=== PATIENT | female | born 1955 | race Caucasian/White ===

== ENCOUNTER 2021-12-01 14:39 | Emergency (ER) | payer MEDICARE, MEDICAID, SELFPAY ==
[2021-12-01] VITALS (7 sets, daily range): BP systolic 105–191; BP diastolic 73–118; PULSE 69–79; RESP 17–20; TEMP 36.7–36.8; O2SAT 95–98; BMI 30.4
--- NOTE | 2021-12-01 15:08 | PC.NURSE ---
blankets propped under R knee are for support and comfort
--- NOTE | 2021-12-01 15:10 | PC.NURSE ---
ELEAZAR RICKS at
--- NOTE | 2021-12-01 15:13 | XR_ITS ---
FINAL REPORT CLINICAL HISTORY: injury, fall today, pain FINDINGS: 2 views of the right hip and an AP pelvis were obtained. There is a fracture of the superior acetabulum. There is superior subluxation of the right femur. IMPRESSION: Superior acetabular fracture with superior subluxation of the femur. Reviewed, Interpreted and Dictated by Matt Tillman III, MD Transcribed by Monico Gonzales Authenticated and [facility]
--- NOTE | 2021-12-01 15:33 | CT_ITS ---
FINAL REPORT CLINICAL HISTORY: injury, fall today , pain FINDINGS: CT RIGHT HIP WITHOUT CONTRAST Technique: Axial images through the right hip were performed by computed tomography. Sagittal and coronal reconstruction images were performed. This study was performed with techniques to keep radiation doses as low as reasonably achievable (ALARA). Individualized dose reduction techniques using automated exposure control or adjustment of mA and/or kV according to the patient's size were employed. There is a comminuted fracture of the posterior-superior acetabulum. There are several bony fragments within the joint space. Largest fragment measures 28 mm and is displaced superiorly. There is significant posterior and superior subluxation of the right femur. A joint effusion is present. IMPRESSION: Comminuted acetabular fracture with posterior superior subluxation of the femur. Reviewed, Interpreted and Dictated by Matt Tillman III, MD Transcribed by Monico Gonzales Authenticated and [facility]
--- NOTE | 2021-12-01 15:33 | PC.NURSE ---
susannah notified of CT order of R hip per ER MD
--- NOTE | 2021-12-01 15:34 | HMH.EDGENADL ---
Discharge Plan Disposition Patient Disposition: Xfer Short-Term Hosp Condition: Fair Chief Complaint: Fall Referrals Follow up/Referrals: Michelle Banda [Primary Care Provider] - See instructions Clinical Impressions Clinical Impression: Acetabulum fracture, Fracture subluxation of hip joint Discharge ED Provider: Dayton Gutiérrez General Adult HPI General Chief complaint: Fall Stated complaint: Fall Time Seen by Provider: 12/01/21 15:08 Mode of Arrival: Family Vehicle Source of Information: Patient Limitations: No Limitations Description of Symptoms (Recalled from ER Triage Doc. by RN): pt to ed via pvt car c/o right hip pain. pt states she was at the bottom of a ladder holding for her son, the ladder became unstable and the ladder and her son fell on top of her. pt denies hitting her head and states -LOC. History of Present Illness HPI narrative: History obtained from patient and her son. Patient states that she was holding a ladder for her son who was climbing up on the ladder. The ladder fell. She was knocked to the ground landing on her left side and then the ladder landed on top of her with his weight on the ladder. She complains of pain in her right posterior hip. States that she was not able to move her hip or bear weight after the injury. Brought in by son by private vehicle. She has a small skin tear on her left forearm, otherwise denies any other injuries. Denies head or neck injury, chest injury, abdominal injury, back injury. No numbness or weakness. States she is on no medications. No chronic medical problems. PFSH PFS Social History Smoking Status: Never smoker ROS Obtained: Yes Systems reviewed as appropriate & no additional complaints except as documented Constitutional Constitutional: Denies headache(s) and Denies weakness Eyes Eyes: Denies change in vision ENT Ears, Nose, Mouth, and Throat: Denies headache(s) and Denies neck pain Cardiovascular Cardiovascular: Denies chest pain Respiratory Respiratory: Denies shortness of breath and Denies cough Gastrointestinal Gastrointestingal: Denies abdominal pain, diarrhea or vomiting Musculoskeletal Musculoskeletal: Reports as per HPI, Reports arthralgias (Right hip), Denies back pain, Denies neck pain and Denies numbness Neurologic Neurologic: Denies headache(s), Denies numbness and Denies weakness Physical Exam General General appearance: alert and in no apparent distress Head Head exam: atraumatic and normocephalic Eye Eye exam: Present normal appearance and EOMI ENT ENT exam: Present mucous membranes dry Neck Neck exam: Present normal inspection, full ROM and trachea midline; Absent tenderness Chest Chest inspection: Present normal inspection and symmetric chest wall rise; Absent tenderness Respiratory Respiratory exam: Present normal lung sounds bilaterally; Absent respiratory distress Cardiovascular Cardiovascular exam: Present regular rate, normal rhythm and normal heart sounds Abdominal Exam Abdominal exam: Present soft; Absent distention, tenderness, guarding, rebound or rigidity Expanded Lower Extremity Exam Right: Comment: Laying with right knee slightly flexed elevated on a pillow. Normal distal neurovascular status. Tenderness to her right posterior hip. No pain in the inguinal crease/groin or lateral hip over the greater trochanter. Neurological Exam Neurological exam: Present alert, oriented X3 and CN II-XII intact; Absent motor sensory deficit Psychiatric Psychiatric exam: Present normal affect and normal mood Skin Skin exam: Present warm and dry Medical Decision Making Remi Inquiry Pt receiving controlled substance: Yes Remi was queried for this patient: Yes Risks and benefits of using a controlled substance: were not discussed with pt by me Vital Signs: 12/01/21 14:42 12/01/21 16:02 Temperature 98.0 F Temperature Source Oral Pulse Rate 71 Pulse Rate [Right Radial] 76 Respiratory Rate 18 1
[2021-12-01 15:49] LABS: Basophils % 0.4 % (0.1-2.0); Chloride 104 mmol/L (98-107); Eosinophils # 0.1 K/mm3 (0.0-0.4); Eosinophils % 0.7 % (0.1-12.0); Hematocrit 36.6 % (37.0-47.0); Hemoglobin 11.2 g/dL (12.2-16.2); Lymphocytes # 1.5 K/mm3 (0.7-4.5); Lymphocytes % 14.8 % (10-50); Mean Corpuscular HGB Conc 30.7 g/dL (31.8-35.4); Mean Corpuscular Hemoglobin 28.1 pg (27.0-31.2); Mean Corpuscular Volume 91.6 fl (81-99); Mean Platelet Volume 8.2 fl (7.4-10.4); Monocytes # 0.4 K/mm3 (0.1-1.0); Neutrophils # 8.3 K/mm3 (1.8-7.8); Neutrophils % 80.1 % (37.0-80.0); Platelet Count 222 K/mm3 (142-424); Red Cell Distribution Width 13.8 % (11.5-17.5); Sodium 140 mmol/L (136-145); White Blood Count 10.3 K/mm3 (4.8-10.8)
[2021-12-01 15:50] LABS: Potassium 3.5 mmoL/L (3.5-5.1)
[2021-12-01 15:52] LABS: Blood Urea Nitrogen 16 mg/dl (7-17); Creatinine Clearance Estimated 70 mL/min (50-200); Estimated Glomerular Filt Rate 55 ml/min (>60); GFR (African American) 67 ML/MIN (>60)
[2021-12-01 15:53] LABS: Anion Gap 12.5 mEq/L (5-15); Calcium 8.5 mg/dl (8.4-10.2); Carbon Dioxide 27 mmol/L (22.0-30.0); Glucose 116 mg/dl (74-100)
--- NOTE | 2021-12-01 15:58 | XR_ITS ---
FINAL REPORT CLINICAL HISTORY: R hip injury, fall today , FINDINGS: A single portable view of the chest was obtained. The heart size and pulmonary vascularity are within normal limits. The mediastinum is within normal limits. No acute pulmonary abnormality is identified. The bony thorax is intact. IMPRESSION: No active cardiopulmonary disease. Reviewed, Interpreted and Dictated by Matt Tillman III, MD Transcribed by Taylor Kraus Authenticated and . [facility]
--- NOTE | 2021-12-01 16:47 | PC.NURSE ---
Called [facility] for request to TRANSFER
--- NOTE | 2021-12-01 16:49 | PC.NURSE ---
Calling [facility] for Transfer
--- NOTE | 2021-12-01 17:01 | PC.NURSE ---
pt accepted @ ED -> ED
--- NOTE | 2021-12-01 17:24 | PC.NURSE ---
family updated on POC, transfer record signed and [facility] called for transport
--- NOTE | 2021-12-01 17:25 | PC.NURSE ---
[facility] called for transfer of patient from [facility] to ER. It was stated that the other truck was in [place] and that they would come up when they get back
--- NOTE | 2021-12-01 18:45 | PC.NURSE ---
called report to rigoberto at [facility]
== END 2021-12-01 18:30 | disposition short-term general hospital (02) ==
PROVIDERS: Emergency Provider Emergency Medicine; PCP Family Medicine
DX: W18.09XA Striking against other object with subsequent fall, initial encounter (principal); S32.491A Other specified fracture of right acetabulum, initial encounter for closed fracture; S72.091A Other fracture of head and neck of right femur, initial encounter for closed fracture
CPT/HCPCS: 71045; 73502; 73700; 80048; 85025; 99284; J2405